=== PATIENT | male | born 1995 | race Caucasian/White ===

== ENCOUNTER 2020-02-03 11:03 | Emergency (ER) | payer BC ==
[~2020-02-03] VITALS: Ht 177.8 cm; Wt 86.2 kg
[2020-02-03 11:40] VITALS: BP_SYST 126
--- NOTE | 2020-02-03 11:45 | NUR ---
Pt walked in to ER with c/o fast heart beat and SOB. Reports feeling very anxious and current anabolic steroid use. V/S stable, pt is afebrile. Currently resting in bed, will continue to monitor.
--- NOTE | 2020-02-03 11:50 | NUR ---
ER Dr. Frausto at bedside examining patient.
--- NOTE | 2020-02-03 12:05 | NUR ---
Urine sample obtained and sent to lab
--- NOTE | 2020-02-03 12:10 | NUR ---
EKG performed at BS by RN. Physician given copy of EKG for review.
--- NOTE | 2020-02-03 12:17 | NUR ---
Lab at bedside to draw blood
[2020-02-03 12:27] LABS: BASOPHILS % (AUTO) 0.7 % (0.0-2.0); EOSINOPHILS # (AUTO) 0.5 K/uL (0.0-0.4); EOSINOPHILS % (AUTO) 6.9 % (0.0-4.0); HEMATOCRIT 54.1 % (36-54); HEMOGLOBIN 18.2 g/dL (14.0-18.0); LYMPHOCYTES # (AUTO) 1.6 K/uL (1.0-5.5); LYMPHOCYTES % (AUTO) 23.3 % (20.5-51.5); MEAN CORPUSCULAR HEMOGLOBIN 30 pg (27-31); MEAN CORPUSCULAR HGB CONC 34 % (32-36); MEAN CORPUSCULAR VOLUME 88 fL (79.0-98.0); MONOCYTES # (AUTO) 0.6 K/uL (0.0-1.0); MONOCYTES % (AUTO) 9.3 % (1.7-9.3); NEUTROPHILS # (AUTO) 4.1 K/uL (1.8-7.7); NEUTROPHILS % (AUTO) 59.8 % (40.0-70.0); PLATELET COUNT (AUTO) 277 K/uL (130-430); RED BLOOD CELL COUNT(AUTO) 6.16 MIL/uL (4.2-6.2); RED CELL DISTRIBUTION WIDTH 13.9 % (9.0-15.0); WHITE BLOOD COUNT (AUTO) 6.9 K/uL (4.8-10.8)
[2020-02-03 12:52] LABS: CALCIUM 9.5 mg/dL (8.4-11.0); CREATININE 1.27 mg/dL (0.55-1.30); POTASSIUM 3.8 mmol/L (3.5-5.1)
[2020-02-03 12:55] LABS: BARBITURATE, URINE NEGATIVE (NEG <=200); BENZODIAZEPINE, URINE NEGATIVE (NEG <=150); CANNABINOID, URINE NEGATIVE (NEG <=50); COCAINE, URINE NEGATIVE (NEG <=150); METHAMPHETAMINES SCREEN,URINE NEGATIVE (NEG <=500); OPIATE, URINE NEGATIVE (NEG <=100); PHENCYCLIDINE SCREEN,URINE NEGATIVE (NEG <=25); UR TRICYCLIC ANTIDEPRESSANTS NEGATIVE (NEG <=300); URINE AMPHETAMINE NEGATIVE (NEG <=500); URINE METHADONE NEGATIVE (NEG <=200); URINE OXYCODONE SCREEN NEGATIVE (NEG <=100); URINE PROPOXYPHENE SCREEN NEGATIVE (NEG <=300)
[2020-02-03 12:56] LABS: ALBUMIN 4.6 g/dL (3.4-4.8); TOTAL BILIRUBIN 0.7 mg/dL (0.0-1.0)
--- NOTE | 2020-02-03 13:14 | NUR ---
Called lab regarding results for CMP, told it would be 5 minutes before they are input into the computer.
--- NOTE | 2020-02-03 14:00 | NUR ---
Patient given written and verbal discharge instructions and verbalizes understanding. ER MD discussed with patient the results and treatment provided. Patient in stable condition. ID arm band removed. No prescriptions given. Patient educated on pain management and to follow up with PMD. Pain Scale 0. Opportunity for questions provided and answered. Medication side effect fact sheet provided.
[2020-02-03 14:19] VITALS: BP_SYST 126
== END 2020-02-03 14:19 | disposition home or self-care (01) ==
LOC: SED 11:03
DX: E86.0 Dehydration (principal); R42 Dizziness and giddiness; J45.909 Unspecified asthma, uncomplicated; G43.909 Migraine, unspecified, not intractable, without status migrainosus; Z91.011 Allergy to milk products
CPT/HCPCS: 36415; 80053; 80307; 82962; 85025; 93005; 99284

== ENCOUNTER 2020-02-16 22:23 | Emergency (ER) | payer BC ==
[~2020-02-16] VITALS: Ht 177.8 cm; Wt 86.2 kg
[2020-02-16 22:23] VITALS: BP_SYST 117
--- NOTE | 2020-02-17 00:43 | NUR ---
Patient to ER CHAIR to gown for evaluation. Side rails up.
--- NOTE | 2020-02-17 00:57 | NUR ---
ER at bedside examining patient.
--- NOTE | 2020-02-17 00:59 | NUR ---
Patient given written and verbal discharge instructions by Dr Montalvo and verbalizes understanding. ER MD discussed with patient the results and treatment provided. Patient in stable condition. ID arm band removed. Rx of AUGMENTIN PO given. Patient educated on pain management and to follow up with PMD. Pain Scale 2/10. Opportunity for questions provided and answered. Medication side effect fact sheet provided.
[2020-02-17 01:00] VITALS: BP_SYST 115
== END 2020-02-17 01:00 | disposition home or self-care (01) ==
LOC: SED 22:23
DX: H66.92 Otitis media, unspecified, left ear (principal); J45.909 Unspecified asthma, uncomplicated; G43.909 Migraine, unspecified, not intractable, without status migrainosus; Z91.011 Allergy to milk products
CPT/HCPCS: 99283

== ENCOUNTER 2024-02-25 23:08 | Emergency (ER) | payer BC, OTHER ==
[~2024-02-25] VITALS: Ht 175.3 cm; Wt 74.8 kg
[2024-02-25 23:09] VITALS: BP_SYST 151; PULSE 109; RESP 18; TEMP 96.9; O2SAT 98
[2024-02-25] MEDS: ALBUTEROL SULFATE 0.083% 2.5 MG/3 ML VIAL.NEB INH ONE (23:57)
[2024-02-26] MEDS: predniSONE 20 MG TABLET PO ONE
[2024-02-26] MEDS ORDERED: ALBMDI INH (02:45)
[2024-02-26] MEDS ORDERED: METH-776 PO (02:45)
[2024-02-26 02:49] VITALS: BP_SYST 125; PULSE 99; RESP 18; TEMP 97.3; O2SAT 96
== END 2024-02-26 02:49 | disposition home or self-care (01) ==
LOC: SED 23:08
DX: J45.909 Unspecified asthma, uncomplicated (principal); R06.02 Shortness of breath; G43.909 Migraine, unspecified, not intractable, without status migrainosus; Z88.1 Allergy status to other antibiotic agents; Z91.011 Allergy to milk products; Z79.899 Other long term (current) drug therapy
CPT/HCPCS: 99283; 94640; J7512